=== PATIENT | female | born 1960 | race Caucasian/White ===

== ENCOUNTER 2023-03-16 11:34 | Day surgery (SDC) | payer OTHER ==
[~2023-03-16] VITALS: Ht 167.6 cm; Wt 68.0 kg
[2023-03-16] MEDS ORDERED: fentaNYL citrate 0.05 MG/ML VIAL ONE (13:29)
[2023-03-16] MEDS ORDERED: LIDOCAINE 2% 100 MG/5 ML UJET TP ONE (13:29)
[2023-03-16] MEDS ORDERED: MIDAZOLAM 2 MG/2 ML VIAL ONE (13:54)
[2023-03-16] MEDS ORDERED: MIDAZOLAM 2 MG/2 ML VIAL IVP ONE (14:35)
[2023-03-16] MEDS ORDERED: fentaNYL citrate 0.05 MG/ML VIAL IVP ONE (14:35)
== END 2023-03-16 14:40 | disposition home or self-care (01) ==
LOC: MOR 11:34 → MMU 12:29 → MOR 14:40
PROVIDERS: ATTEND Internal Medicine Gastroenterology
DX: Z12.11 Encounter for screening for malignant neoplasm of colon (principal); K57.30 Diverticulosis of large intestine without perforation or abscess without bleeding; K64.9 Unspecified hemorrhoids; E78.00 Pure hypercholesterolemia, unspecified; Z90.49 Acquired absence of other specified parts of digestive tract; Z79.899 Other long term (current) drug therapy
CPT/HCPCS: 45378; J2250; J3010